=== PATIENT | female | born 1995 | race Caucasian/White ===

== ENCOUNTER 2017-07-25 19:14 | Emergency (ER) | payer SELFPAY ==
[~2017-07-25] VITALS: Ht 165.1 cm; Wt 61.7 kg
[~2017-07-25 19:14] MED LIST: IBUP800T23 PO; PENVK500 PO; PRED5PAK PO; TRAM50 PO; Z.0.NO CURRENT MEDS
[2017-07-25 19:17] VITALS: BP 127/55; PULSE 74; RESP 14; TEMP 97.3; O2SAT 100
[2017-07-25] MEDS ORDERED: ERYTOIN10 LEFT EYE (19:34)
--- NOTE | 2017-07-25 19:34 | PD ---
HPI Chief Complaint: Eye Problems/Injury Time Seen by Provider: 19:33 Travel History International Travel<30 days: No Contact w/Intl Traveler<30days: No Traveled to known affect area: No History of Present Illness HPI Patient is a 22-year-old female who presents to emergency room complaints of stye dry left eye. Patient denies any vision changes, denies any pruritus, reports that she has noticed this stye over the past 24 hours. Patient with no other complaints at this time. PFSH Past Medical History Asthma: Yes Diminished Hearing: No Musculoskeletal: Yes (BROKEN L ARM) Immunizations Current: Yes ?: Not LMP: 07/01/17 Past Surgical History Tympanostomy Tube: Yes Social History Alcohol Use: No Tobacco Use: No Substance Use: No Allergies-Medications (Allergen,Severity, Reaction): Coded Allergies: No Known Allergies (Verified Adverse Reaction, Unknown, 07/25/17) Reported Meds & Prescriptions Reported Meds & Active Scripts Active Erythromycin Opth Oint 5 Mg/Gm Oint 1 Applic LEFT EYE QID Review of Systems General / Constitutional: No: Fever Eyes: Positive: Other (STYE), No: Visual changes HENT: No: Headaches Cardiovascular: No: Chest Pain or Discomfort Respiratory: No: Shortness of Breath Gastrointestinal: No: Abdominal Pain Genitourinary: No: Dysuria Musculoskeletal: No: Pain Skin: No Rash Neurologic: No: Weakness Psychiatric: No: Depression Endocrine: No: Polydipsia Hematologic/Lymphatic: No: Easy Bruising Physical Exam Narrative GENERAL: Well-nourished, well-developed patient. SKIN: Focused skin assessment warm/dry. HEAD: Normocephalic. EYES: No scleral icterus. No injection or drainage. Patient with stye to left lower eyelid, no erythema or drainage, left eye with no injection or scleral icterus, no hypopyon or hyphema. Right eye: normal exam CARDIOVASCULAR: Regular rate and rhythm without murmurs, gallops, or rubs. RESPIRATORY: Breath sounds equal bilaterally. No accessory muscle use. GASTROINTESTINAL: Abdomen soft, non-tender, nondistended. Data Data Last Documented VS Vital Signs Date Time Temp Pulse Resp B/P (MAP) Pulse Ox O2 Delivery O2 Flow Rate FiO2 07/25/17 19:17 97.3 74 14 127/55 (79) 100 Orders Orders Ed Discharge Order (07/25/17 19:35) MDM Medical Decision Making Medical Screen Exam Complete: Yes Emergency Medical Condition: Yes Interpretation(s) Vital Signs Date Time Temp Pulse Resp B/P (MAP) Pulse Ox O2 Delivery O2 Flow Rate FiO2 07/25/17 19:17 97.3 74 14 127/55 (79) 100 Differential Diagnosis Conjunctivitis, stye Narrative Course Patient with a stye to her left lower eyelid, discussed need for warm compresses , will start her on erythromycin ophthalmic cream. Plan to have patient follow up with farm crops teacher as needed. Patient with no other complaints at this time. Diagnosis Primary Impression: Stye Qualified Codes: H00.016 - Hordeolum externum left eye, unspecified eyelid Additional Instructions: Please use antibiotic ointment as prescribed Please follow-up with your farm crops teacher Apply warm compresses to stye Return to ER as needed Med/Other Pt SpecificInfo: Prescription(s) given Scripts Erythromycin Opth Oint (Erythromycin Opth Oint) 5 Mg/Gm Oint 1 APPLIC LEFT EYE QID for Infection, #1 TUBE 0 Refills Prov: Carin Huddleston DO 07/25/17 Disposition: 01 DISCHARGE HOME Condition: Stable Carin Huddleston DO Jul 25, 2017 19:34
== END 2017-07-25 19:40 | disposition home or self-care (01) ==
LOC: PHEFT 19:14
DX: H00.015 Hordeolum externum left lower eyelid (principal)
CPT/HCPCS: 99283